=== PATIENT | female | born 1980 | race African-American/Black ===

== ENCOUNTER 2018-06-03 23:44 | Emergency (ER) | payer OTHER ==
[~2018-06-03] VITALS: Ht 160 cm; Wt 97.5 kg
[2018-06-03] MEDS ORDERED: ATIVAN0.5 MG ORAL (23:52)
[2018-06-04] MEDS ORDERED: LORazepam 1mg tab ORAL ONE
[2018-06-04 00:56] LABS: APPEARANCE,URINE CLOUDY; BILIRUBIN, URINE NEGATIVE (NEGATIVE); COLOR,URINE PALE YELLOW; GLUCOSE, URINE (UA) NEGATIVE (NEGATIVE); KETONES,URINE NEGATIVE (NEGATIVE); LEUKOCYTE ESTERASE ,URINE 3+ (NEGATIVE); NITRITE,URINE NEGATIVE (NEGATIVE); PH,URINE 7 (4.5-8.0); PROTEIN,URINE 1+ (NEGATIVE); UROBILINOGEN,URINE NORMAL MG/DL (0.0-1.0)
--- NOTE | 2018-06-04 04:40 | Emergency Room Report ---
History of Present Illness General Chief Complaint: General Complaint Source: Patient Present Illness HPI Patient brought by EMS for anxiety attack which began at 23:00. States has rx for Ativan but unable to find it. Increased stress at home with recent illness of mother and son returning to home with medical and psychological problems. No fevers, cough, chest pain, URI sy, vomiting. Some nausea and dyspnea. No SI or HI. Feels light headed. Denies domestic violence and feels safe at home. Alleged CVA on CT. Recurrent R hand numbness. Supposed to wear a brace but cannot find this also. No joint pain. No rashes, dysuria. Allergies: Coded Allergies: No Known Allergies (Unverified , 06/03/18) Patient History Past Medical History: see triage record Social History: Reports: smoking; Denies: alcohol use, drug use - see tox Social History Narrative stopped working to take care of mother with recent diagnosis of cancer Last Menstrual Period: 05/14/2018 Now: No : 1 Para: 1 Reviewed Nursing Documentation: PMH: Agreed; PSxH: Agreed Nursing Documentation-PMH Past Medical History: No History, Except For Hx Neurological Problems: Yes - anxiety Hx Cerebrovascular Accident: Yes - 04/2018 Review of Systems All Other Systems: negative except mentioned in HPI Physical Exam Vital Signs Date Time Temp Pulse Resp B/P (MAP) Pulse Ox O2 Delivery O2 Flow Rate FiO2 06/03/18 23:50 99.0 104 18 118/69 99 Room Air Sp02 EP Interpretation: reviewed, normal General Appearance: well appearing, GCS 15, mild distress - tearful Head: normocephalic Eyes: bilateral eye normal inspection, bilateral eye PERRL ENT: moist mucus membranes Neck: supple Respiratory: chest non-tender, lungs clear, normal breath sounds Cardiovascular #1: regular rate, rhythm, no edema Cardiovascular #2: 2+ radial (R) Gastrointestinal: normal inspection, normal bowel sounds, non tender, no mass, non-distended, overweight Genitourinary: no CVA tenderness Musculoskeletal: back normal, gait/station normal, normal range of motion, no calf tenderness, Angie's Sign negative Neurologic: alert, oriented x3, motor strength/tone normal, sensory intact - though subjective numbness R hand Psychiatric: anxious Skin: normal inspection, warm/dry Medical Decision Making Diagnostic Impression: Primary Impression: Anxiety Additional Impressions: Substance abuse Situational stress ER Course Patient presents with overwhelming stress and anxiety with dyspnea and no chest pain. Differential includes anxiety, GERD, reflux, acute myocardial infarction , substance abuse, pulmonary embolus amongst others. Patient will be evaluated with EKG, chest x-ray and labs. She'll be treated with Ativan. CT head is not indicated as there seems to be chronic issues. Based on exam doubt PE. EKG with sinus rhythm and a normal EKG. Chest x-ray no infiltrates. Labs remarkable for positive amphetamines. Patient is improved with treatment. She was sleeping here. We discussed getting help for her stress with her mother and family issues. Also discussed the issue of amphetamine abuse. Patient improved and stable for outpatient observation and treatment. Laboratory Tests Test 06/04/18 00:35 Urine Color Pale yellow Urine Appearance Cloudy Urine pH 7 (4.5-8.0) Urine Specific [place] 1.015 (1.005-1.035) Urine Protein 1+ (NEGATIVE) H Urine Glucose (UA) Negative (NEGATIVE) Urine Ketones Negative (NEGATIVE) Urine Blood Negative (NEGATIVE) Urine Nitrite Negative (NEGATIVE) Urine Bilirubin Negative (NEGATIVE) Urine Urobilinogen Normal MG/DL (0.0-1.0) Urine Leukocyte Esterase 3+ (NEGATIVE) H Urine RBC 2-4 /HPF (0 - 2) H Urine WBC 40-60 /HPF (0 - 2) H Urine Squamous Epithelial Cells Many /LPF (NONE/OCC) H Urine Bacteria Moderate /HPF (NONE) H Urine HCG, Qualitative Negative (NEGATIVE) Urine Opiates Screen Negative (NEGATIVE) Urine Barbiturates Screen Negative (NEGATIVE) Phencyclidine (PCP) Screen Negative (NEGATIVE) Urine Amphetamines Screen Positive (NEGATIVE) H Urine Benzodiazepines Screen Negative (NEGATIVE) Urine Cocaine Screen Negative (NEGATIVE) Urine Marijuana (THC) Screen Positive (NEGATIVE) H EKG Diagnostic Results Rate: normal Rhythm: NSR ST Segments: no acute changes Rhythm Strip Diag. Results EP Interpretation: yes Rhythm: NSR, no PVC's, no ectopy Chest X-Ray Diagnostic Results Chest X-Ray Diagnostic Results : Chest X-Ray Ordered: Yes # of Views/Limited/Complete: 1 View Indication: Other EP Interpretation: Yes Interpretation: no consolidation, no effusion, no pneumothorax Impression: No acute disease Electronically Signed by: Electronically signed by Miguel Richards MD Last Vital Signs Date Time Temp Pulse Resp B/P (MAP) Pulse Ox O2 Delivery O2 Flow Rate FiO2 06/04/18 05:46 98.4 96 18 109/77 96 Room Air Status: improved Disposition: HOME, SELF-CARE Condition: Improved Referrals: NON PHYSICIAN (PCP) Miguel Richards MD Jun 04, 2018 04:40
[2018-06-04 05:43] VITALS: BP 109/77
[2018-06-04 05:46] VITALS: BP 109/77
--- NOTE | 2018-06-04 12:20 | Cardiology Report ---
APPROVED REPORT EKG Measurement Heart [id number] Normal sinus rhythm Normal ECG
== END 2018-06-04 05:50 | disposition home or self-care (01) ==
LOC: EDBD 23:44 → EMR 06-04 00:10
DX: F41.9 Anxiety disorder, unspecified (principal); F19.10 Other psychoactive substance abuse, uncomplicated; F43.9 Reaction to severe stress, unspecified; F17.200 Nicotine dependence, unspecified, uncomplicated; Z86.73 Personal history of transient ischemic attack (TIA), and cerebral infarction without residual deficits; E66.3 Overweight; Z68.38 Body mass index [BMI] 38.0-38.9, adult
CPT/HCPCS: 80307; 81003; 81025; 87086; 93005; 99284